=== PATIENT | male | born 1950 | race Caucasian/White ===

== ENCOUNTER 2022-10-21 14:27 | Emergency (ER) | payer MEDICARE, BC ==
[2022-10-21 16:32] VITALS: BP 132/89; PULSE 67
== END 2022-10-21 15:58 | disposition home or self-care (01) ==
LOC: FB.ED 14:27
DX: S80.12XA Contusion of left lower leg, initial encounter (principal); Z86.718 Personal history of other venous thrombosis and embolism; Z79.01 Long term (current) use of anticoagulants; W18.43XA Slipping, tripping and stumbling without falling due to stepping from one level to another, initial encounter
CPT/HCPCS: 99283